=== PATIENT | male | born 1965 | race Caucasian/White ===

== ENCOUNTER 2018-09-14 09:26 | Emergency (ER) | payer MEDICAID ==
[~2018-09-14] VITALS: Ht 157.5 cm; Wt 59.1 kg
[2018-09-14 09:29] VITALS: BP 147/99; Ht 157.5 cm; Wt 59.1 kg
[2018-09-14] MEDS ORDERED: SULFAMETHOXAZOL1 TA3 PO (09:31)
[2018-09-14] MEDS ORDERED: RANITIDINE HCL150 M1 PO (09:32)
[2018-09-14 09:49] LABS: BASOPHILS 0.1 % (0-2); EOSINOPHILS 0.1 % (0-7); HEMATOCRIT 50.4 % (42.0-54.0); HEMOGLOBIN 18.4 g/dL (13.5-17.5); IMMATURE GRANULOCYTES 0.1 % (0-5); LYMPHOCYTES 21.4 % (15-50); MCH 32.9 pg (26.0-34.0); MCHC 36.5 g/dL (31.0-37.0); MONOCYTES 6.5 % (2-11); NEUTROPHILS 71.8 % (40-80); RDW 12.5 % (11.5-14.5); WBC 8.2 10x3/uL (4.8-10.8)
[2018-09-14 10:00] LABS: PLATELET COUNT 374 10x3/uL (130-400)
[2018-09-14 10:07] LABS: ALBUMIN 4.3 g/dL (3.4-5.0); ALKALINE PHOSPHATASE 114 U/L (46-116); ALT (SGPT) 24 U/L (10-68); CALC OSMOLALITY 281 mosm/kg (275-300); CALCIUM 9.8 mg/dL (8.5-10.1); CHLORIDE - SERUM 95 mmol/L (98-107); CREATININE - SERUM 2.1 mg/dL (0.6-1.3); GLUCOSE 121 mg/dL (74-106); POTASSIUM - SERUM 5.2 mmol/L (3.5-5.1); PROTEIN - SERUM 9.7 g/dL (6.4-8.2); SODIUM 132 mmol/L (136-145); UREA NITROGEN 57 mg/dL (7-18); eGFR NON AFRICAN AMERICAN 35 mL/min (90-120)
[2018-09-14 10:33] LABS: AMYLASE - SERUM 41 U/L (25-115); CREATINE KINASE 381 UL (21-232); LIPASE 90 U/L (73-393)
[2018-09-14 10:34] LABS: CKMB 3.3 U/L (0.0-3.6); TROPONIN-I < 0.017 ng/mL (0.000-0.060)
[2018-09-14 10:35] LABS: APPEARANCE CLEAR (CLEAR); BILIRUBIN NEGATIVE (NEGATIVE); COLOR YELLOW (YELLOW); GLUCOSE NEGATIVE (NEGATIVE); KETONE SMALL mg/dL (NEGATIVE); NITRITE NEGATIVE (NEGATIVE); PROTEIN TRACE mg/dL (NEGATIVE); SPECIFIC GRAVITY 1.025 (1.005-1.020); UROBILINOGEN NORMAL (NORMAL)
[2018-09-14 10:39] LABS: BACTERIA FEW /hpf (NONE SEEN); EPITHELIAL CELLS 0-5 /hpf (0-5); MUCUS <1+ /lpf (NONE SEEN); URIC ACID CRYSTALS 0-5 /hpf (NONE SEEN); WHITE CELLS - URINE OCC /hpf (0-5)
== END 2018-09-14 11:35 | disposition left against medical advice (07) ==
LOC: D.ER 09:26
PROVIDERS: Emergency Medicine
DX: T67.5XXA Heat exhaustion, unspecified, initial encounter (principal); X58.XXXA Exposure to other specified factors, initial encounter; Y93.89 Activity, other specified; Y92.89 Other specified places as the place of occurrence of the external cause; R11.10 Vomiting, unspecified